=== PATIENT | male | born 1950 | race Caucasian/White ===

== ENCOUNTER → 2020-06-18 08:24 | Outpatient (BNVA) | payer MEDICARE, SELFPAY | PROVIDERS: PCP Internal Medicine; Visit Provider Urology | DX: Z76.89 Persons encountering health services in other specified circumstances (principal) | CPT/HCPCS: 99212 ==

== ENCOUNTER 2021-06-16 10:45 | Outpatient (REF) | payer OTHER, MEDICARE, SELFPAY ==
[2021-06-16 12:07] LABS: Prostate Specific Antigen 2.46 ng/mL (<0.05-4.0)
== END 2021-06-16 10:46 | disposition home or self-care (01) ==
LOC: HO.LAB 10:45
PROVIDERS: PCP Internal Medicine; Visit Provider Urology
DX: Z12.5 Encounter for screening for malignant neoplasm of prostate (principal); N13.8 Other obstructive and reflux uropathy; N40.1 Benign prostatic hyperplasia with lower urinary tract symptoms
CPT/HCPCS: 36415; 84153

== ENCOUNTER → 2021-06-21 08:11 | Outpatient (BNVA) | payer MEDICARE, OTHER, SELFPAY | PROVIDERS: PCP Internal Medicine; Visit Provider Urology | DX: N40.1 Benign prostatic hyperplasia with lower urinary tract symptoms (principal); N13.8 Other obstructive and reflux uropathy; R33.9 Retention of urine, unspecified; R97.20 Elevated prostate specific antigen [PSA] | CPT/HCPCS: Q3014 ==

== ENCOUNTER 2021-08-16 07:48 | Outpatient (REF) | payer OTHER, MEDICARE, SELFPAY ==
[2021-08-16 11:50] LABS: Hematocrit 39.9 % (42.0-52.0); Hemoglobin 12.9 g/dl (14.0-18.0); Mean Corpuscular HGB Conc 32.3 g/dl (31.0-36.0); Mean Corpuscular Hemoglobin 30.9 pg (27.0-33.0); Mean Corpuscular Volume 95.5 fL (80.0-98.0); Mean Platelet Volume 11.3 fL (9.4-12.4); Platelet Count 174 X10*3/uL (160-400); Red Blood Count 4.18 X10*6/uL (4.60-5.80); Red Cell Distribution Width 13.5 % (11.0-16.0)
[2021-08-16 11:53] LABS: Estimated Average Glucose 120 mg/dL; Hemoglobin A1c % 5.8 %
[2021-08-16 12:03] LABS: Alanine Aminotransferase 15 U/L (0-40); Albumin Level 3.8 g/dL (3.5-5.0); Alkaline Phosphatase 51 U/L (39-117); Anion Gap 13 (12-20); Aspartate Amino Transferase 23 U/L (5-37); Bilirubin Total 0.3 mg/dL (0.0-1.0); Blood Urea Nitrogen 21 mg/dL (9-16); Calcium 8.8 mg/dL (8.4-10.2); Carbon Dioxide 24 mmol/L (22-29); Chloride 108 mmol/L (96-108); Cholesterol 166 mg/dL; Estimated Glomerular Filt Rate > 60; Glucose Fasting 114 mg/dL (60-99); HDL Cholesterol 54 mg/dL; LDL Cholesterol Calculated 102 mg/dl; Potassium 4.5 mmol/L (3.3-5.1); Sodium 140 mmol/L (135-145); Total Protein 6.3 g/dL (6.5-8.0); Triglycerides 50 mg/dL
[2021-08-16 12:27] LABS: Creatinine Urine 108.31 mg/dL; Microalbumin Urine < 5.0 mg/L
== END 2021-08-16 07:49 | disposition home or self-care (01) ==
LOC: HO.HMGCLDS 07:48
PROVIDERS: Visit Provider Internal Medicine
DX: Z00.00 Encounter for general adult medical examination without abnormal findings (principal); R73.9 Hyperglycemia, unspecified
CPT/HCPCS: 36415; 80053; 80061; 82043; 83036; 85027

== ENCOUNTER 2021-12-14 11:50 | Outpatient (REF) | payer OTHER, MEDICARE, SELFPAY ==
[2021-12-14 13:22] LABS: Prostate Specific Antigen 2.05 ng/mL (<0.05-4.0)
== END 2021-12-14 11:51 | disposition home or self-care (01) ==
LOC: HO.LAB 11:50
PROVIDERS: PCP Internal Medicine; Visit Provider Urology
DX: Z12.5 Encounter for screening for malignant neoplasm of prostate (principal); R97.20 Elevated prostate specific antigen [PSA]
CPT/HCPCS: 36415; 84153

== ENCOUNTER → 2021-12-21 08:41 | Outpatient (BNVA) | payer OTHER, MEDICARE, SELFPAY | PROVIDERS: PCP Internal Medicine; Visit Provider Urology | DX: N40.1 Benign prostatic hyperplasia with lower urinary tract symptoms (principal); N52.9 Male erectile dysfunction, unspecified; R97.20 Elevated prostate specific antigen [PSA] | CPT/HCPCS: 51798; 99212 ==

== ENCOUNTER 2022-12-15 16:45 | Outpatient (REF) | payer OTHER, MEDICARE, SELFPAY ==
[2022-12-15 16:58] LABS: MANUAL DIFF FLAG NO
[2022-12-15 18:12] LABS: Basophils Percent Auto 0.4 % (0-2); Eosinophils Absolute Auto 0.3 X10*3/uL (0.0-0.4); Eosinophils Percent Auto 3.6 % (0-4); Hemoglobin 13.6 g/dl (14.0-18.0); Imm Gran Abs Auto 0.01 X10*3/uL (0.00-0.03); Imm Gran Pct Auto 0.1 % (0.0-0.4); Lymphocytes Absolute Auto 2.4 X10*3/uL (1.2-4.9); Lymphocytes Percent Auto 30.6 % (20-40); Mean Corpuscular Hemoglobin 30.9 pg (27.0-33.0); Mean Corpuscular Volume 90.9 fL (80.0-98.0); Mean Platelet Volume 11.4 fL (9.4-12.4); Monocytes Absolute Auto 0.6 X10*3/uL (0.1-1.2); Monocytes Percent Auto 7.5 % (2-11); Neutrophils Absolute Auto 4.4 x10*3/uL (2.0-8.3); Neutrophils Percent Auto 57.8 % (45-73); Platelet Count 194 X10*3/uL (160-400); White Blood Count 7.7 X10*3/uL (4.8-10.8)
[2022-12-15 18:30] LABS: Alanine Aminotransferase 15 U/L (0-40); Albumin Level 3.9 g/dL (3.5-5.0); Alkaline Phosphatase 54 U/L (39-117); Anion Gap 12 (12-20); Aspartate Amino Transferase 22 U/L (5-37); Bilirubin Total 0.5 mg/dL (0.0-1.0); Blood Urea Nitrogen 16 mg/dL (9-16); Calcium 9.8 mg/dL (8.4-10.2); Carbon Dioxide 26 mmol/L (22-29); Chloride 105 mmol/L (96-108); Estimated Glomerular Filt Rate > 60; Glucose Fasting 198 mg/dL (60-99); Potassium 4.2 mmol/L (3.3-5.1); Sodium 139 mmol/L (135-145); Total Protein 6.9 g/dL (6.5-8.0)
[2022-12-15 18:52] LABS: Prostate Specific Antigen 2.66 ng/mL (<0.05-4.0)
[2022-12-15 18:52] LABS: Appearance Urine Cloudy; Color Urine Yellow; Glucose Urine UA Negative (Negative); Leukocyte Esterase Urine Moderate (2+) (Negative); Nitrite Urine Negative (Negative); PH 5.5 (5.0-9.0); Specific Gravity - Urine 1.025 (1.005-1.025); UMIC TRIGGER UA YES; Urine Blood Negative (Negative); Urine Ketones Trace mg/dL (Negative); Urine Protein Negative (Neg-Trace)
[2022-12-15 19:04] LABS: Bacteria Urine None Seen (None Seen); Calcium Oxalate Crystals Urine Present; Hyaline Casts Urine 0-2 /LPF (0-2); Squamous Epithelial Cell Urine 0-2 /HPF (0-2); WBC Urine >50 /HPF (0-5)
[2022-12-16 03:43] LABS: Estimated Average Glucose 123 mg/dL; Hemoglobin A1C 149.4609 umol/L; Hemoglobin A1c % 5.9 %
== END 2022-12-15 16:46 | disposition home or self-care (01) ==
LOC: HO.LAB 16:45
PROVIDERS: PCP Internal Medicine; Visit Provider Urology
DX: Z12.5 Encounter for screening for malignant neoplasm of prostate (principal); N13.8 Other obstructive and reflux uropathy; N40.1 Benign prostatic hyperplasia with lower urinary tract symptoms; R97.20 Elevated prostate specific antigen [PSA]; R73.9 Hyperglycemia, unspecified
CPT/HCPCS: 36415; 80053; 81001; 83036; 84153; 85025

== ENCOUNTER 2023-04-10 13:38 | Outpatient (AMB) | payer OTHER, MEDICARE, SELFPAY ==
--- NOTE | 2023-04-10 13:47 | MHC.OFFVIS ---
Intake Intake Visit Reasons: 1yr follow up/PSA(SET) Intake Note: Patient is Present for Follow Up PSA/PVR Urology Medication: Finasteride,Sildenafil (Need refill on finasteride) Antibiotic Allergies: None Blood Thinners: None PVR: 0 Compliants: Allergies fentanyl Allergy (Unknown, Verified 04/10/23 13:52) nausea and vomiting Medication List - Last Reconciled 04/10/23 by Aaron Nieves MD finasteride 5 mg PO DAILY 90 days sildenafil 100 mg PO ONCE PRN 30 days HPI HPI Comments History of Present Illness Details Joao is a very pleasant male. They are a patient of Dr Weaver. He is seen for the following urologic conditions - lower urinary tract symptoms - erectile dysfunction PSA 2.6 - continues with finasteride Has noted some curvature with penis Curvature does not interfere with sexual activity Continue with finasteride 6 month follow-up PSA Erectile dysfunction Unable to obtain full erection or maintain Progressive No prior use of medications Trial use of sildenafil and tadalafil Elevated PSA/Abnormal SARAH: PSA stabilized with a copy before testing He presents for further evaluation of elevated PSA. Current management is finasteride. Laboratory investigations include a free and total PSA evaluation 05/19 5.6 Free 8%, 12/17 2.1 - 05/20 1.8, 06/21 2.4, 12/19 2.0, 04/21 2.6 Individualized Prostate Cancer Risk Calculator 5-10% high risk, Discussed use of 5AR to help differentiate prostate cancer from benign disease. He would like to try this and understands the small risk associated with a delay in diagnosis. Symptoms include frequency, and are stable. Therapeutic plan will be continue with finasteride follow-up in 12 months [facility] Medical History Annual physical exam Hyperglycemia Shingles Benign prostatic hyperplasia with lower urinary tract symptoms Nocturia Elevated PSA Surgical History Hx of colonoscopy History of surgery Family History Father Prostate cancer Social History Housing: House Patient Tobacco Use Status: Never used Tobacco e-Cigarette/Vaping Use: Never Used Current occupational status: employed and retired Cognitive needs: No Hearing needs: No Vision needs: Yes Review of Systems Const Denies chills and Denies fever(s) Card Reports no additional complaints and Denies syncope Resp Denies cough GI Denies abdominal pain and Denies heartburn Reports as per HPI and Denies change in libido Neuro Denies syncope Psych Denies change in libido Endo Denies change in libido Physical Exam Const General: cooperative, healthy appearing, comfortable and no acute distress Orientation/consciousness: patient oriented x3 HEENT Face and sinus: Yes normal facial exam Mouth: moist mucous membranes Neck Neck: Yes normal visual inspection, Yes full ROM and Yes trachea midline Chest Chest palpation & inspection: normal inspection of the chest Resp Effort & Inspection: normal respiratory effort, able to speak in complete sentences and no respiratory distress GI Inspection: Yes normal to inspection Back/Spine/Pelvis Cervical Spine: normal cervical lordosis Thoracic/Lumbar Spine: thoracic and lumbar spine normal to inspection Skin General skin exam: no rashes or lesions noted Neuro General: patient oriented x3, gait normal, tone normal and moves all extremities Extrem General: Yes normal to inspection and Yes capillary refill normal Office Procedures Post Void Residual Post Residual Void Post Void Residual (PVR): 0 [id number] Void Residual by ultrasound Assessment & Plan Assessment & Plan (1) Erectile dysfunction: Code(s): N52.9 - Male erectile dysfunction, unspecified (2) Benign prostatic hyperplasia with lower urinary tract symptoms: Code(s): N40.1 - Benign prostatic hyperplasia with lower urinary tract symptoms (3) Elevated PSA: Comment: f/u with Dr. Nieves Code(s): R97.20 - Elevated prostate specific antigen [PSA] Plan Six month follow-up PSA tele Orders: Orders AMB Urinalysis Automated Today Z13.9 - Encounter for screening, unspecified PSA,Total (Free>4and<10) 6 Months R97.20 - Elevated prostate specific antigen [PSA] AMB Post Void Residual by ultrasound Today N40.1 - Benign prostatic hyperplasia with lower urinary tract symptoms Patient Instructions: Imaging studies, laboratory and physical exam results were discussed and reviewed in detail. No major barriers to patient understanding were identified. An opportunity to ask questions regarding the treatment plan was provided. All questions were answered. The patient expressed understanding and agreement with the above treatment plan. The patient is aware they should contact our office by phone for worsening of their current condition or the appearance of new urologic symptoms. Compliance is encouraged with any medications and followup testing that is ordered. It is a privilege to participate in the urologic care of your patient. If you have any questions or concerns regarding treatment for the above conditions, or other urologic issues, please do not hesitate to contact me. The office telephone contact is [phone]. This note is constructed using voice recognition software. While every effort has been made to ensure accuracy agricultural service technician errors may have been included. Yours sincerely, Dr Aaron Nieves MD, [facility] - Urology Providers of Expert, Compassionate Care for the Genitourinary System Coding Level of Care Code Est Pt Level 4 (52439) Diagnoses Erectile dysfunction N52.9 Benign prostatic hyperplasia with lower urinary tract symptoms N40.1 Elevated PSA R97.20 CPT Codes Post Residual Void - PVR CPT Code: 08844-Cbyv Void Residual by ultrasound ([id number])
== END 2023-04-10 14:12 | disposition home or self-care (01) ==
PROVIDERS: PCP Internal Medicine; Visit Provider Urology
DX: N52.9 Male erectile dysfunction, unspecified (principal); N40.1 Benign prostatic hyperplasia with lower urinary tract symptoms; R97.20 Elevated prostate specific antigen [PSA]
CPT/HCPCS: 99214

== ENCOUNTER → 2023-04-10 13:38 | Outpatient (BNVA) | payer OTHER, MEDICARE, SELFPAY | PROVIDERS: PCP Internal Medicine; Visit Provider Urology | DX: N52.9 Male erectile dysfunction, unspecified (principal); N40.1 Benign prostatic hyperplasia with lower urinary tract symptoms; R97.20 Elevated prostate specific antigen [PSA] | CPT/HCPCS: 51798 ==

== ENCOUNTER 2023-05-30 11:06 | Outpatient (AMB) | payer OTHER, MEDICARE, SELFPAY ==
--- NOTE | 2023-05-30 11:08 | A.OFFPC_ITS ---
Vital Signs 05/30/23 11:09 Height 5 ft 9 in Weight 183 lb BMI 27.0 BP 134/68 Blood Pressure Location Rt brachial Position Sitting Pulse 61 Pulse Source Pulse Oximeter Pulse Oximetry (%) 98 Oxygen Delivery Method Room Air Intake Visit Reasons: [facility], cold symptoms Intake Note: Pt is here today for a Hospital follow up visit. Allergies fentanyl Allergy (Unknown, Verified 05/30/23 11:14) nausea and vomiting Medication List - Last Reconciled 05/30/23 by Zara Kumar MD finasteride 5 mg PO DAILY 90 days Tobacco use date assessed: 05/30/23 Fall risk assessment: No Falls in past year Last assessed Fall Risk: 05/30/23 Dental Screening Dental Screen Date: 05/30/23 Did you have a dental visit in the last 12 months?: Yes Did you have a dental problem in the last 6 months where you did not have access to dental care?: No Was dental information given to patient?: Patient has dentist HPI [facility], cold symptoms HPI Details Patient presents for the follow-up of ER visit for vasovagal episode. Patient reports persistent right ear feeling blocked and some nasal congestion since his upper respiratory infection 2 weeks ago. Patient denies pain in the ear fever chills or PFSH Medical History Annual physical exam Hyperglycemia Shingles Benign prostatic hyperplasia with lower urinary tract symptoms Nocturia Elevated PSA Surgical History Hx of colonoscopy History of surgery Family History Father Prostate cancer Social History Housing: House Patient Tobacco Use Status: Never used Tobacco e-Cigarette/Vaping Use: Never Used Current occupational status: employed and retired Cognitive needs: No Hearing needs: No Vision needs: Yes Questionnaire Thrive Questionnaire Date Thrive assessed: 08/02/21 AUDIT C Alcohol Use Questionnaire (AUDIT-C) 1. How often do you have a drink containing alcohol?: Never 3. How often do you have six or more drinks on one occasion?: Never Total Score: 0 JARVIS-7 AMB Questionnaire JARVIS-7 Date JARVIS - 7 assessed: 08/02/21 Source: Developed by Drs. Arsh Arguelles, Ruby Carolina, Bernardino Breen and colleagues, with an educational salvador from [employer]. Review of Systems Const All systems reviewed & are unremarkable except as noted in HPI and below Reports no additional complaints Eyes Reports no additional complaints ENT Reports no additional complaints Card Reports no additional complaints Resp Reports no additional complaints GI Reports no additional complaints Reports no additional complaints Physical exam (Primary Care) Vital Signs: Last Vital Signs Pulse 61 05/30/23 11:09 BP 144/68 H 05/30/23 11:09 Pulse Ox 98 05/30/23 11:09 Oxygen Delivery Method Room Air 05/30/23 11:09 BMI result Body Mass Index 27.0 Tobacco/Smoking Status: Tobacco use Status Tobacco use date assessed 05/30/23 05/30/23 11:16 Patient Tobacco Use Status Never used Tobacco 05/30/23 11:16 e-Cigarette/Vaping Use Never Used 05/30/23 11:08 Thrive Assessment: Date of Thrive Assessment Date Thrive assessed 08/02/21 05/30/23 11:08 Const General: no acute distress HENMT Face and sinus: Yes normal facial exam Eyes General: appearance normal, both eyes and all related structures Resp Effort & Inspection: normal respiratory effort Auscultation: clear to auscultation bilaterally Cardio Rhythm: regular rhythm Heart sounds: S1 normal heart sound present and S2 normal heart sound present GI Inspection: Yes normal to inspection Palpation (GI): Soft to palpation Assessment and Plan Assessment & Plan (1) Hyperglycemia: Code(s): R73.9 - Hyperglycemia, unspecified Plan: A1c was 5.9 in November, diet regular physical activity discussed with the patient he will return in 2 months for a physical with a fasting labs before (2) Benign prostatic hyperplasia with lower urinary tract symptoms: Code(s): N40.1 - Benign prostatic hyperplasia with lower urinary tract symptoms Plan: Continue finasteride and follow-up with urology annually Orders: Orders Lipid Panel 2 Months R73.9 - Hyperglycemia, unspecified, Z00.00 - Encounter for general adult medical examination without abnormal findings Comprehensive [place]. Panel Fast 2 Months R73.9 - Hyperglycemia, unspecified, Z00.00 - Encounter for general adult medical examination without abnormal findings Hemoglobin A1c 2 Months R73.9 - Hyperglycemia, unspecified, Z00.00 - Encounter for general adult medical examination without abnormal findings Complete Blood Count Auto Diff 2 Months R73.9 - Hyperglycemia, unspecified, Z00.00 - Encounter for general adult medical examination without abnormal findings Microalbumin, Random (w Creat) 2 Months R73.9 - Hyperglycemia, unspecified, Z00.00 - Encounter for general adult medical examination without abnormal findings Coding Level of Care Code Est Pt Level 3 (60424) Diagnoses Hyperglycemia R73.9 Benign prostatic hyperplasia with lower urinary tract symptoms N40.1
[2023-05-30 11:09] VITALS: BP 134/68; PULSE 61; O2SAT 98; BMI 27.0
== END 2023-05-30 12:21 | disposition home or self-care (01) ==
PROVIDERS: PCP Internal Medicine; Visit Provider Internal Medicine
DX: R73.9 Hyperglycemia, unspecified (principal); N40.1 Benign prostatic hyperplasia with lower urinary tract symptoms
CPT/HCPCS: 99213

== ENCOUNTER 2023-10-05 09:10 | Outpatient (REF) | payer OTHER, MEDICARE, SELFPAY ==
[2023-10-05 10:52] LABS: PSA,Total (Free>4and<10) 2.79 ng/mL (0.00-4.00)
== END 2023-10-05 09:11 | disposition home or self-care (01) ==
LOC: HO.LAB 09:10
PROVIDERS: PCP Internal Medicine; Visit Provider Urology
DX: R97.20 Elevated prostate specific antigen [PSA] (principal); Z12.5 Encounter for screening for malignant neoplasm of prostate
CPT/HCPCS: 36415; 84153

== ENCOUNTER 2023-10-19 08:46 | Outpatient (AMB) | payer OTHER, MEDICARE, SELFPAY ==
--- NOTE | 2023-10-19 08:46 | A.OFFVIS_ITS ---
Intake Visit Reasons: 6m/PSA(set) Intake Note: Pt presents to the office today for a 6 month/PSA. Blood thinners- none Urology Meds-Finasteride Allergies fentanyl Allergy (Unknown, Verified 10/19/23 08:46) nausea and vomiting HPI Comments Details: Joao is a very pleasant male. He is a patient of Dr Weaver. He is seen for the following urologic conditions - lower urinary tract symptoms - erectile dysfunction Telemedicine Evaluation 15 min Consultation Doximity David Video attempted PSA remains in range 2.8 Noticed subclinical Peyronie's Curvature does not interfere with sexual activity Continue with finasteride 6 month follow-up PSA Erectile dysfunction Unable to obtain full erection or maintain Progressive No prior use of medications Trial use of sildenafil and tadalafil Elevated PSA/Abnormal SARAH: PSA stabilized with a copy before testing He presents for further evaluation of elevated PSA. Current management is finasteride. Laboratory investigations include a free and total PSA evaluation 05/19 5.6 Free 8%, 12/17 2.1 - 05/20 1.8, 06/21 2.4, 12/19 2.0, 04/21 2.6, 10/21 2.8 Individualized Prostate Cancer Risk Calculator 5-10% high risk, Discussed use of 5AR to help differentiate prostate cancer from benign disease. He would like to try this and understands the small risk associated with a delay in diagnosis. Symptoms include frequency, and are stable. Therapeutic plan will be continue with finasteride follow-up in 6 months [facility] Medical History Annual physical exam Hyperglycemia Shingles Benign prostatic hyperplasia with lower urinary tract symptoms Nocturia Elevated PSA Surgical History Hx of colonoscopy History of surgery Family History Father Prostate cancer Social History Housing: House Patient Tobacco Use Status: Never used Tobacco e-Cigarette/Vaping Use: Never Used Current occupational status: employed and retired Cognitive needs: No Hearing needs: No Vision needs: Yes Review of Systems Const All systems reviewed & are unremarkable except as noted in HPI and below Reports no additional complaints Resp Reports no additional complaints GI Reports no additional complaints Reports as per HPI Musc Reports no additional complaints Physical Exam Telemedicine evaluation Appropriate responses Regular breathing rate and rhythm HEENT Head: Yes normal to inspection Ears: hearing grossly normal bilaterally Eyes General: appearance normal, both eyes and all related structures Neck Neck: Yes normal visual inspection Chest Chest palpation & inspection: normal inspection of the chest Resp Effort & Inspection: normal respiratory effort and able to speak in complete sentences Telehealth Telehealth Telehealth Platform: [employer] Location of provider rendering services: practice address Location of patient: address on file Patient Identification confirmed using: Name, : Yes Telehealth method: video Patient verbally consented to treatment: Yes Patient verbally consented to billing insurance company: Yes Patient informed of any privacy concerns related to visit: Yes Minutes spent on Phone/Video with Pt.: 15 Assessment & Plan Assessment & Plan (1) Elevated PSA: Comment: f/u with Dr. Nieves Code(s): R97.20 - Elevated prostate specific antigen [PSA] Category: Medical (2) Benign prostatic hyperplasia with lower urinary tract symptoms: Code(s): N40.1 - Benign prostatic hyperplasia with lower urinary tract symptoms Category: Medical (3) Erectile dysfunction: Code(s): N52.9 - Male erectile dysfunction, unspecified Category: Medical Plan Six-month follow-up PSA office Orders: Orders Prostate Specific Antigen 10/05/23 R97.20 - Elevated prostate specific antigen [PSA] Prostate Specific Antigen 6 Months R97.20 - Elevated prostate specific antigen [PSA] Medications: Refilled finasteride 5 mg PO DAILY 90 days 90 tabs 1RF N13.8 - Other obstructive and reflux uropathy, N40.1 - Benign prostatic hyperplasia with lower urinary tract symptoms Patient Instructions: Imaging studies, laboratory and physical exam results were discussed and re viewed in detail. No major barriers to patient understanding were identified. An opportunity to ask questions regarding the treatment plan was provided. All questions were answered. The patient expressed understanding and agreement with the above treatment plan. The patient is aware they should contact our office by phone for worsening of their current condition or the appearance of new urologic symptoms. Compliance is encouraged with any medications and followup testing that is ordered. It is a privilege to participate in the urologic care of your patient. If you have any questions or concerns regarding treatment for the above conditions, or other urologic issues, please do not hesitate to contact me. The office telephone contact is [phone]. This note is constructed using voice recognition software. While every effort has been made to ensure accuracy mash filter press operator errors may have been included. Yours sincerely, Dr Aaron Nieves MD, [facility] - Urology Providers of Expert, Compassionate Care for the Genitourinary System Coding Level of Care Code Tele Est Pt Level 3 (47717) Diagnoses Elevated PSA R97.20 Benign prostatic hyperplasia with lower urinary tract symptoms N40.1 Erectile dysfunction N52.9
== END 2023-10-19 09:59 | disposition home or self-care (01) ==
LOC: HO.HUSH 08:46
PROVIDERS: PCP Internal Medicine; Visit Provider Urology
DX: R97.20 Elevated prostate specific antigen [PSA] (principal); N40.1 Benign prostatic hyperplasia with lower urinary tract symptoms; N52.9 Male erectile dysfunction, unspecified
CPT/HCPCS: 99213

== ENCOUNTER → 2023-10-19 08:46 | Outpatient (BNVA) | payer OTHER, MEDICARE, SELFPAY | PROVIDERS: PCP Internal Medicine; Visit Provider Urology ==

== ENCOUNTER 2024-05-23 14:49 | Outpatient (REF) | payer MEDICARE, SELFPAY ==
[2024-05-23 16:10] LABS: Prostate Specific Antigen 4.14 ng/mL (<0.05-4.0)
== END 2024-05-23 14:50 | disposition home or self-care (01) ==
LOC: HO.LAB 14:49
PROVIDERS: PCP Internal Medicine; Visit Provider Urology
DX: R97.20 Elevated prostate specific antigen [PSA] (principal); Z12.5 Encounter for screening for malignant neoplasm of prostate
CPT/HCPCS: 36415; 84153

== ENCOUNTER 2024-05-28 08:50 | Outpatient (AMB) | payer MEDICARE, OTHER, SELFPAY ==
--- NOTE | 2024-05-28 08:53 | A.OFFVIS_ITS ---
Intake Visit Reasons: 6M PSA/PVR(set)Elevated Intake Note: Patient is present for 6M/PSA/PVR Urology Medication:FINASTERIDE Antibiotic Allergy:NONE Blood Thinner:NONE Todays PVR:99ML'S: Cooler Worker Required: No Allergies fentanyl Allergy (Unknown, Verified 05/28/24 08:54) nausea and vomiting HPI Comments Details: Joao is a very pleasant male. He is a patient of Dr Weaver. He is seen for the following urologic conditions - lower urinary tract symptoms - erectile dysfunction PSA has jumped to 4.1 Continue with finasteride Three-month follow-up PSA Sildenafil prescription provided Erectile dysfunction Unable to obtain full erection or maintain Progressive Elevated PSA/Abnormal SARAH: PSA stabilized with a copy before testing He presents for further evaluation of elevated PSA. Current management is finasteride. Laboratory investigations include a free and total PSA evaluation 05/19 5.6 Free 8%, 12/17 2.1 - 05/20 1.8, 06/21 2.4, 12/19 2.0, 04/21 2.6, 10/21 2.8, 05/24 4.2 Individualized Prostate Cancer Risk Calculator 5-10% high risk, Discussed use of 5AR to help differentiate prostate cancer from benign disease. He would like to try this and understands the small risk associated with a delay in diagnosis. Symptoms include frequency, and are stable. Therapeutic plan will be continue with finasteride follow-up in 6 months [facility] Medical History Annual physical exam Hyperglycemia Shingles Benign prostatic hyperplasia with lower urinary tract symptoms Nocturia Elevated PSA Surgical History Hx of colonoscopy History of surgery Family History Father Prostate cancer Social History Housing: House Patient Tobacco Use Status: Never used Tobacco e-Cigarette/Vaping Use: Never Used Current occupational status: employed and retired Cognitive needs: No Hearing needs: No Vision needs: Yes Review of Systems Const Denies chills and Denies fever(s) Card Reports no additional complaints and Denies syncope Resp Denies cough GI Denies abdominal pain and Denies heartburn Reports as per HPI and Denies change in libido Neuro Denies syncope Psych Denies change in libido Endo Denies change in libido Physical Exam Const General: cooperative, healthy appearing, comfortable and no acute distress Orientation/consciousness: patient oriented x3 HEENT Face and sinus: Yes normal facial exam Mouth: moist mucous membranes Neck Neck: Yes normal visual inspection, Yes full ROM and Yes trachea midline Chest Chest palpation & inspection: normal inspection of the chest Resp Effort & Inspection: normal respiratory effort, able to speak in complete sentences and no respiratory distress GI Inspection: Yes normal to inspection Rectal Exam - Male: Yes normal sphincter tone and Yes prostate normal Male General Exam: Yes normal external exam Penis: normal penis and circumcised Meatus: meatus normal Scrotum: scrotum normal Testes: Testes normal Back/Spine/Pelvis Cervical Spine: normal cervical lordosis Thoracic/Lumbar Spine: thoracic and lumbar spine normal to inspection Skin General skin exam: no rashes or lesions noted Neuro General: patient oriented x3, gait normal, tone normal and moves all extremities Extrem General: Yes normal to inspection and Yes capillary refill normal Office Procedures Post Void Residual Post Residual Void Post Void Residual (PVR): 99 [id number]-[id number] Void Residual by ultrasound Results AMB Urinalysis, Automated UA Leukoctes 70 Deanna/uL Last Edit by LORRI Coburn on 05/28/24 09:14 UA Nitrite Negative Last Edit by LORRI Coburn on 05/28/24 09:14 UA Urobilinogen 0.2 mg/dL Last Edit by LORRI Coburn on 05/28/24 09:1 4 UA Protein 0 mg/dL Last Edit by LORRI Coburn on 05/28/24 09:14 UA pH 6.0 Last Edit by LORRI Coburn on 05/28/24 09:14 UA Blood 0 Eros/uL Last Edit by LORRI Coburn on 05/28/24 09:14 UA Specific [place] 1.025 Last Edit by LORRI Coburn on 05/28/24 09: 14 UA Ketone Negative Last Edit by LORRI Coburn on 05/28/24 09:14 UA Bilirubin 0 mg/dL Last Edit by LORRI Coburn on 05/28/24 09:14 UA Glucose 0 mg/dL Last Edit by LORRI Coburn on 05/28/24 09:14 Results Reviewed Results Reviewed: Laboratory Last Values Urine pH (Auto) 6.0 05/28/24 09:13 Specific [place] (Auto) 1.025 05/28/24 09:13 Urine Protein (Auto) 0 mg/dL 05/28/24 09:13 Glucose (UA)(Auto) 0 mg/dL 05/28/24 09:13 Urine Ketones (Auto) Negative 05/28/24 09:13 Urine Blood (Auto) 0 Eros/uL 05/28/24 09:13 Urine Nitrite (Auto) Negative 05/28/24 09:13 Urine Bilirubin (Auto) 0 mg/dL 05/28/24 09:13 Urine Urobilinogen (Auto) 0.2 mg/dL 05/28/24 09:13 Leukocyte Esterase (Auto) 70 Deanna/uL 05/28/24 09:13 Assessment & Plan Assessment & Plan (1) Elevated PSA: Comment: f/u with Dr. Nieves Code(s): R97.20 - Elevated prostate specific antigen [PSA] Category: Medical (2) Erectile dysfunction: Code(s): N52.9 - Male erectile dysfunction, unspecified Category: Medical Plan Three-month follow-up PSA Orders: Orders Prostate Specific Antigen 3 Months R97.20 - Elevated prostate specific antigen [PSA] AMB Urinalysis Automated Today Z13.9 - Encounter for screening, unspecified Medications: New sildenafil administer 60 minutes before intended activity 100 mg PO ONCE 30 days PRN 30 tabs 1RF sexual activity N52.9 - Male erectile dysfunction, unspecified Patient Instructions: Imaging studies, laboratory and physical exam results were discussed and reviewed in detail. No major barriers to patient understanding were identified. An opportunity to ask questions regarding the treatment plan was provided. All questions were answered. The patient expressed understanding and agreement with the above treatment plan. The patient is aware they should contact our office by phone for worsening of their current condition or the appearance of new urologic symptoms. Compliance is encouraged with any medications and followup testing that is ordered. It is a privilege to participate in the urologic care of your patient. If you have any questions or concerns regarding treatment for the above conditions, or other urologic issues, please do not hesitate to contact me. The office telephone contact is [phone]. This note is constructed using voice recognition software. While every effort has been made to ensure accuracy rn lpn cna errors may have been included. Yours sincerely, Dr Aaron Nieves MD, [facility] - Urology Providers of Expert, Compassionate Care for the Genitourinary System Coding Level of Care Code Est Pt Level 4 (22340) Diagnoses Elevated PSA R97.20 Erectile dysfunction N52.9 CPT Codes Post Residual Void - PVR CPT Code: 85631-Cukl Void Residual by ultrasound ([id number])
== END 2024-05-28 09:42 | disposition home or self-care (01) ==
PROVIDERS: PCP Internal Medicine; Visit Provider Urology
DX: R97.20 Elevated prostate specific antigen [PSA] (principal); N52.9 Male erectile dysfunction, unspecified; Z13.9 Encounter for screening, unspecified
CPT/HCPCS: 99214

== ENCOUNTER → 2024-05-28 08:50 | Outpatient (BNVA) | payer MEDICARE, SELFPAY | PROVIDERS: PCP Internal Medicine; Visit Provider Urology | DX: R97.20 Elevated prostate specific antigen [PSA] (principal); N52.9 Male erectile dysfunction, unspecified | CPT/HCPCS: 51798; 81003; 99212 ==

== ENCOUNTER 2024-08-22 07:32 | Outpatient (REF) | payer OTHER, MEDICARE, SELFPAY ==
[2024-08-22 09:12] LABS: Prostate Specific Antigen 3.42 ng/mL (<0.05-4.0)
== END 2024-08-22 07:33 | disposition home or self-care (01) ==
LOC: HO.LAB 07:32
PROVIDERS: PCP Internal Medicine; Visit Provider Urology
DX: R97.20 Elevated prostate specific antigen [PSA] (principal); Z12.5 Encounter for screening for malignant neoplasm of prostate
CPT/HCPCS: 36415; 84153

== ENCOUNTER 2024-08-26 08:49 | Outpatient (AMB) | payer OTHER, MEDICARE, SELFPAY ==
--- NOTE | 2024-08-26 08:50 | MHC.OFFVIS ---
Intake Visit Reasons: 3 month follow up/ PSA(psa?) Intake Note: Patient is present for 3M/PSA Urology Medication:FINASTERIDE,SILDENAFIL Antibiotic Allergy:NONE Blood Thinner:NONE Boat Person Required: No Allergies fentanyl Allergy (Unknown, Verified 08/26/24 08:50) nausea and vomiting HPI Comments Details: Joao is a very pleasant male. He is a patient of Dr Weaver. He is seen for the following urologic conditions - lower urinary tract symptoms - erectile dysfunction Telemedicine Evaluation 15 min Consultation [facility] Video Three-month follow-up PSA Decrease from 4.2 to 3.2 Sildenafil prescription provided Erectile dysfunction Unable to obtain full erection or maintain Progressive Using on demand sildenafil Metabolic syndrome Elevated PSA/Abnormal SARAH: PSA stabilized with a copy before testing He presents for further evaluation of elevated PSA. Current management is finasteride. Laboratory investigations include a free and total PSA evaluation 05/19 5.6 Free 8%, 12/17 2.1, 05/20 1.8, 06/21 2.4, 12/19 2.0, 04/21 2.6, 10/21 2.8, 05/24 4.2, 08/22 3.4 Individualized Prostate Cancer Risk Calculator 5-10% high risk, Discussed use of 5AR to help differentiate prostate cancer from benign disease. He would like to try this and understands the small risk associated with a delay in diagnosis. Symptoms include frequency, and are stable. Therapeutic plan will be continue with finasteride follow-up in 6 months [facility] Medical History Annual physical exam Hyperglycemia Shingles Benign prostatic hyperplasia with lower urinary tract symptoms Nocturia Elevated PSA Surgical History Hx of colonoscopy History of surgery Family History Father Prostate cancer Social History Housing: House Patient Tobacco Use Status: Never used Tobacco e-Cigarette/Vaping Use: Never Used Current occupational status: employed and retired Cognitive needs: No Hearing needs: No Vision needs: Yes Review of Systems Const All systems reviewed & are unremarkable except as noted in HPI and below Reports no additional complaints Resp Reports no additional complaints GI Reports no additional complaints Reports as per HPI Musc Reports no additional complaints Physical Exam Telemedicine evaluation Appropriate responses Regular breathing rate and rhythm HEENT Head: Yes normal to inspection Ears: hearing grossly normal bilaterally Eyes General: appearance normal, both eyes and all related structures Neck Neck: Yes normal visual inspection Chest Chest palpation & inspection: normal inspection of the chest Resp Effort & Inspection: normal respiratory effort and able to speak in complete sentences Telehealth Telehealth Telehealth Platform: [employer] Location of provider rendering services: practice address Location of patient: address on file Patient Identification confirmed using: Name, : Yes Telehealth method: video Patient verbally consented to treatment: Yes Patient verbally consented to billing insurance company: Yes Patient informed of any privacy concerns related to visit: Yes Minutes spent on Phone/Video with Pt.: 15 Assessment & Plan Assessment & Plan (1) Benign prostatic hyperplasia with lower urinary tract symptoms: Code(s): N40.1 - Benign prostatic hyperplasia with lower urinary tract symptoms Category: Medical (2) Elevated PSA: Comment: f/u with Dr. Nieves Code(s): R97.20 - Elevated prostate specific antigen [PSA] Category: Medical (3) Erectile dysfunction: Code(s): N52.9 - Male erectile dysfunction, unspecified Category: Medical Plan Six-month follow-up PSA office Medications: Refilled finasteride 5 mg PO DAILY 90 days 90 tabs 1RF N13.8 - Other obstructive and reflux uropathy, N40.1 - Benign prostatic hyperplasia with lower urinary tract symptoms Patient Instructions: This note is constructed using voice recognition software. While every effort has been made to ensure accuracy optomechanical engineer errors may have been included. Imaging studies, laboratory and physical exam results were discussed and reviewed in detail. No major barriers to patient understanding were identified. An opportunity to ask questions regarding the treatment plan was provided. All questions were answered. The patient expressed understanding and agreement with the above treatment plan. The patient is aware they should contact our office by phone for worsening of their current condition or the appearance of new urologic symptoms. Compliance is encouraged with any medications and followup testing that is ordered. It is a privilege to participate in the urologic care of your patient. If you have any questions or concerns regarding treatment for the above conditions, or other urologic issues, please do not hesitate to contact me. The office telephone contact is [phone]. Sincerely, Dr Aaron Nieves MD, [facility] - Urology Compassionate Specialist Care for the Genitourinary System Coding Level of Care Code Tele Est Pt Level 3 (00465) Complex EM visit Add On G2211 Diagnoses Benign prostatic hyperplasia with lower urinary tract symptoms N40.1 Elevated PSA R97.20 Erectile dysfunction N52.9
--- OUTSIDE RECORDS SUMMARY | 2024-08-26 09:18 | XMS_ITS | Continuity of Care Document ---
Author Name [facility] Organization [facility] Care Team Providers Care Cosmetics Counter Manager Name Role Phone [facility] Unavailable Unavailable Problems Combined list of problems from Department of Defense and Veterans Affairs facilities. It does not include entries that were removed or entered in error. Problem Status Onset Date Problem Type Date of Resolution Comments Source History of colonoscopy Active 0 Condition Jul 02, 2024 Entered By: TERENCE RUIZ Comment: 2019 Next Colonoscopy 2029 [facility] Basal cell carcinoma of face Active Condition [facility] Bilateral cataracts Active Condition Jul 02, 2024 Entered By: TERENCE RUIZ Comment: Bilateral 2006 [facility] Elevated blood pressure Active Condition [facility] Enlarged prostate Active Condition Aug 01, 2024 Entered By: LENA TRUJILLO Comment: Urology Dr Nieves/[facility]. 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 Tashi lira. REGINA Flower [facility] Diagnosis: ICD-10-CM N40.0 Benign prostatic hyperplasia without lower urinry tract symp Active Diagnosis [facility] Medications Combined list of outpatient medications from Department of Defense and Veterans Affairs facilities.Medications provided include 1) outpatient medications from the last 15 months, and 2) patient-reported medications. Medication Details Route Status Patient Instructions Prescription Expires Prescription Number Last Dispense Date Ordering Provider Order Date Order Qty Source FINASTERIDE 5MG TAB TAKE ONE TABLET BY MOUTH ONCE DAILY ORAL ACTIVE [facility] TAMEZJARVISJERRELL SHI KRIS [facility] [facility] MULTIVITAMI NS W/MINERALS CAP/TAB TAKE ONE CAP/TAB BY MOUTH ONCE DAILY ORAL ACTIVE [facility]AN[facility] [place] JOSE GUADALUPE KRIS 2024 [facility] SILDENAFIL CITRATE 100MG TAB TAKE ONE TABLET BY MOUTH NEEDED ORAL ACTIVE [facility] LANGZABETH [address] [facility] [address] [facility] Allergies, Adverse Reactions, Alerts Combined list of allergies from [facility] and Veterans Affairs facilities. It does not include entries that were removed or entered in error. Substance Category Reaction Severity Reaction type Status Date Reported Comments Source FENTANYL Propensity to adverse reactions to drug (finding) Nausea and vomiting active [facility] Immunizations Combined list of available immunizations from the Department [facility] and Veterans Affairs facilities. Immunization Series Date Given Administered By Site Reaction Lot Number CVX Code Drug Ship Painter Helper Status Comments Source INFLUENZA, UNSPECIFIED FORMULATION 2023 88 complet ed HISTORICA L INFORMATI ON - FROM OTHER REGISTRY, [facility] INFLUENZA, HIGH-DOSE, QUADRIVALENT 2019 197 complet ed HISTORICA L INFORMATI ON - FROM OTHER PROVIDER, Partner: [facility]. Administe red by: [facility] (NPI=Not Provided) . Partner 27 Lot#: [id number] Mfr: sanofi pasteur; Dosage: [id number] ml [facility] Book[facility] INFLUENZA, INJECTABLE, MDCK, PRESERVATIVE FREE, QUADRIVALENT 2018 171 complet ed 02, [facility]. Administe red by: [facility] Clinician (NPI=Not Provided) . Partner 27 Lot#: [id number] Mfr: SEQIRUS [facility] Vital Signs Combined list of inpatient and outpatient Vital Signs from Department of Defense and Veterans Affairs, ranging from 12 months to all on record, depending upon the facility. Vital Sign Value Date Comments Source SYSTOLIC BLOOD PRESSURE 144 08/02/19 25 09:07:05 [facility] DIASTOLIC BLOOD PRESSURE 88 025 09:07:05 [facility] PULSE OXIMETRY 98 08/01/2024 09:07:05 [facility] WEIGHT 204 08/01/2024 09:07:05 [facility] BMI 31 kg/m2 08/01/2024 09:07:05 [facility] PAIN 1 08/01/2024 09:07:05 [facility] HEIGHT 68 08/01/2024 09:07:05 [facility] TEMPERATURE 97.1 08/01/2024 09:07:05 [facility] PULSE 71 08/01/2024 09:07:05 [facility] RESPIRATION 16 08/01/2024 09:07:05 [facility] Encounters Combined list of: 1) Encounters from Department of Veterans Affairs facilities going backup to the last 18 months, not all VA inpatient encounters are included; 2) Encounters from the Department of [facility] facilities going backup to 280 months. Location Location Details Encounter Type Encounter Number Reason For Visit Attending Provider ADM Date DC Date Status Disposition Source [facility] Outpatient Encounter [id number] 02/28 [facility] [id number] 06/30 [facility] Outpatient [facility]counter [id number] 07/02 [facility] Outpatient [facility]counter [id number] 08/01 [facility] OFFICE O/P NEW MOD 45 MIN [id number] Diagnos is: ICD-10- CM N40.0 Benign prostat ic hyperpl laura without lower urinry tract symp LIZZIE BREWER 08/01 [facility] Outpatient Encounter [id number] 08/04 [facility] Social History Combined list of available smoking, tobacco, and other social history from Department of Defense and Veterans Affairs facilities. Social History Type Response Date Comment Sourc e Tobacco smoking status NHIS [place]-TOBACCO NEVER USED CIGARETTES 07[place]02[place] [facility] History of tobacco use [place]-TOBACCO NEVER USED OTHER TYPE 07/02/[address] [facility] [place] [facility] Plan of Care List of future care activities from Department of Veterans Affairs facilities. Additional future care activities may be listed in the Assessment and Plan section. Date/Time Care Activity Care Activity Detail Facili ty 10/29/2024 AMBULATORY - MEDICINE [facility]ULAT[facility] [place] [facility] [place]
== END 2024-08-26 09:54 | disposition home or self-care (01) ==
LOC: HO.HUSH 08:49
PROVIDERS: PCP Internal Medicine; Visit Provider Urology
DX: N40.1 Benign prostatic hyperplasia with lower urinary tract symptoms (principal); R97.20 Elevated prostate specific antigen [PSA]; N52.9 Male erectile dysfunction, unspecified
CPT/HCPCS: 99213; G2211

== ENCOUNTER → 2024-08-26 08:49 | Outpatient (BNVA) | payer OTHER, MEDICARE, SELFPAY | PROVIDERS: PCP Internal Medicine; Visit Provider Urology ==

== ENCOUNTER 2025-02-17 09:16 | Outpatient (REF) | payer OTHER, MEDICARE, SELFPAY ==
[2025-02-17 12:33] LABS: Prostate Specific Antigen 3.60 ng/mL (<0.05-4.0)
== END 2025-02-17 09:17 | disposition home or self-care (01) ==
LOC: HO.LAB 09:16
PROVIDERS: Visit Provider Urology
DX: R97.20 Elevated prostate specific antigen [PSA] (principal); Z12.5 Encounter for screening for malignant neoplasm of prostate
CPT/HCPCS: 36415; 84153

== ENCOUNTER 2025-02-25 08:53 | Outpatient (AMB) | payer OTHER, MEDICARE, SELFPAY ==
--- NOTE | 2025-02-25 09:01 | A.OFFVIS_ITS ---
Intake Visit Reasons: 6m/PSA Intake Note: Patient is present for PSA/PVR Follow Up Urology Med: Finasteride, Sildenafil Antibiotic Allergy: None Blood Thinner: None Last PVR: 99ml Todays PVR: 50ml Machine Molder Required: No Accompanied by: Self / Same As Patient Allergies fentanyl Allergy (Unknown, Verified 02/25/25 09:07) nausea and vomiting HPI Comments Details: Joao is a very pleasant male. He is a patient of Dr Weaver. He is seen for the following urologic conditions - lower urinary tract symptoms - erectile dysfunction Six-month follow-up PSA remaining stable Sildenafil prescription provided Erectile dysfunction Unable to obtain full erection or maintain Progressive Using on demand sildenafil Metabolic syndrome Elevated PSA/Abnormal SARAH: PSA stabilized with a copy before testing He presents for further evaluation of elevated PSA. Current management is finasteride. Laboratory investigations include a free and total PSA evaluation 05/19 5.6 Free 8%, 12/17 2.1, 05/20 1.8, 06/21 2.4, 12/19 2.0, 04/21 2.6, 10/21 2.8, 05/24 4.2, 08/22 3.4, 02/21 7.3.6 Individualized Prostate Cancer Risk Calculator 5-10% high risk, Discussed use of 5AR to help differentiate prostate cancer from benign disease. He would like to try this and understands the small risk associated with a delay in diagnosis. Symptoms include frequency, and are stable. Therapeutic plan will be continue with finasteride follow-up in 6 months [facility] Medical History Annual physical exam Hyperglycemia Shingles Benign prostatic hyperplasia with lower urinary tract symptoms Nocturia Elevated PSA Surgical History Hx of colonoscopy History of surgery Family History Father Prostate cancer Social History Housing: House Patient Tobacco Use Status: Never used Tobacco e-Cigarette/Vaping Use: Never Used Current occupational status: employed and retired Cognitive needs: No Hearing needs: No Vision needs: Yes Review of Systems Const Denies chills and Denies fever(s) Card Reports no additional complaints and Denies syncope Resp Denies cough GI Denies abdominal pain and Denies heartburn Reports as per HPI and Denies change in libido Neuro Denies syncope Psych Denies change in libido Endo Denies change in libido Physical Exam Const General: cooperative, healthy appearing, comfortable and no acute distress Orientation/consciousness: patient oriented x3 HEENT Face and sinus: Yes normal facial exam Mouth: moist mucous membranes Neck Neck: Yes normal visual inspection, Yes full ROM and Yes trachea midline Chest Chest palpation & inspection: normal inspection of the chest Resp Effort & Inspection: normal respiratory effort, able to speak in complete sentences and no respiratory distress GI Inspection: Yes normal to inspection Back/Spine/Pelvis Cervical Spine: normal cervical lordosis Thoracic/Lumbar Spine: thoracic and lumbar spine normal to inspection Skin General skin exam: no rashes or lesions noted Neuro General: patient oriented x3, gait normal, tone normal and moves all extremities Extrem General: Yes normal to inspection and Yes capillary refill normal Office Procedures Post Void Residual Post Residual Void Post Void Residual (PVR): 50 [id number] Void Residual by ultrasound Assessment & Plan Assessment & Plan (1) Elevated PSA: Comment: f/u with Dr. Nieves Code(s): R97.20 - Elevated prostate specific antigen [PSA] Category: Medical (2) Benign prostatic hyperplasia with lower urinary tract symptoms: Code(s): N40.1 - Benign prostatic hyperplasia with lower urinary tract symptoms Category: Medical (3) Erectile dysfunction: Code(s): N52.9 - Male erectile dysfunction, unspecified Category: Medical Plan Twelve month follow-up PSA Orders: Orders AMB Post Void Residual by ultrasound Today N40.1 - Benign prostatic hyperplasia with lower urinary tract symptoms Prostate Specific Antigen 12 Months R97.20 - Elevated prostate specific antigen [PSA] Medications: Refilled sildenafil administer 60 minutes before intended activity 100 mg PO ONCE PRN 30 tabs 1RF sexual activity 30 days N52.9 - Male erectile dysfunction, unspecified finasteride 5 mg PO DAILY 90 tabs 3RF 90 days N13.8 - Other obstructive and reflux uropathy, N40.1 - Benign prostatic hyperplasia with lower urinary tract symptoms Patient Instructions: This note is constructed using voice recognition software. While every effort has been made to ensure accuracy electrical engineering draftsperson errors may have been included. Imaging studies, laboratory and physical exam results were discussed and reviewed in detail. No major barriers to patient understanding were identified. An opportunity to ask questions regarding the treatment plan was provided. All questions were answered. The patient expressed understanding and agreement with the above treatment plan. The patient is aware they should contact our office by phone for worsening of their current condition or the appearance of new urologic symptoms. Compliance is encouraged with any medications and followup testing that is ordered. It is a privilege to participate in the urologic care of your patient. If you have any questions or concerns regarding treatment for the above conditions, or other urologic issues, please do not hesitate to contact me. The office telephone contact is [phone]. Sincerely, Dr Aaron Nieves MD, [facility] - Urology Compassionate Specialist Care for the Genitourinary System Coding Level of Care Code Est Pt Level 3 (34898) Complex EM visit Add On G2211 Diagnoses Elevated PSA R97.20 Benign prostatic hyperplasia with lower urinary tract symptoms N40.1 Erectile dysfunction N52.9 CPT Codes Post Residual Void - PVR CPT Code: 33804-Suus Void Residual by ultrasound ([id number])
== END 2025-02-25 09:33 | disposition home or self-care (01) ==
LOC: HO.HUSH 08:54
PROVIDERS: PCP Internal Medicine; Visit Provider Urology
DX: R97.20 Elevated prostate specific antigen [PSA] (principal); N40.1 Benign prostatic hyperplasia with lower urinary tract symptoms; N52.9 Male erectile dysfunction, unspecified
CPT/HCPCS: 99213

== ENCOUNTER → 2025-02-25 08:53 | Outpatient (BNVA) | payer OTHER, MEDICARE, SELFPAY | PROVIDERS: PCP Internal Medicine; Visit Provider Urology | DX: N40.1 Benign prostatic hyperplasia with lower urinary tract symptoms (principal) | CPT/HCPCS: 51798 ==